=== PATIENT | male | born 1995 | race Caucasian/White ===

== ENCOUNTER 2022-02-25 13:38 | Emergency (ER) | payer SELFPAY | END 2022-02-25 16:51 | disposition home or self-care (01) | LOC: BURERS 13:38 | DX: T81.41XA Infection following a procedure, superficial incisional surgical site, initial encounter (principal) | CPT/HCPCS: 99283 ==

== ENCOUNTER 2022-09-08 19:39 | Emergency (ER) | payer SELFPAY | END 2022-09-08 21:25 | disposition home or self-care (01) | LOC: BURERS 19:39 | DX: J02.9 Acute pharyngitis, unspecified (principal) | CPT/HCPCS: 87081; 87430; 87804; 99283 ==